=== PATIENT | male | born 1945 | race Caucasian/White ===

== ENCOUNTER 2017-04-25 14:41 | Outpatient (CLI) | payer MEDICARE ==
[2017-04-25] MEDS ORDERED: IOPAMIDOL-300 100 ML VIAL ONE (15:13)
[2017-04-25 15:27] LABS: CREATININE 0.7 mg/dL (0.6-1.2)
[2017-04-25] MEDS ORDERED: IOPAMIDOL-300 100 ML VIAL IVP ONE (15:46)
--- NOTE | 2017-04-26 10:10 | CT Report ---
CT BRAIN WITH AND WITHOUT CONTRAST: 04/25/2017 CLINICAL INDICATION: Left leg weakness. TECHNIQUE: Axial CT images of the brain were obtained prior to and following 80 mL Isovue-[address] No previous CT is available for comparison. In accordance with CT protocol optimization, one or more of the following dose reduction techniques w ere utilized for this exam: automated exposure control, adjustment of mA and/or KV based on patient size, or use of iterative reconstructive technique. FINDINGS: The ventricles and sulci are normal in size, shape, and configuration. The basilar cister ns are patent. There is no evidence of hemorrhage, mass effect, or midline shift. No abnormal enhan cement is seen following contrast administration. The visualized orbital contents and paranasal sinu ses are unremarkable. IMPRESSION: NORMAL CT OF THE BRAIN WITH AND WITHOUT CONTRAST. JOB #: [id number] EXT JOB #:[id number]
--- NOTE | 2017-04-26 16:50 | Ultrasound Report ---
CAROTID DUPLEX: 04/25/2017 CLINICAL INDICATION: Carotid bruit. TECHNIQUE: Real-time sonographic vascular imaging was performed by the automotive exhaust emissions technician through the carotid arteries utilizing both color-flow and Doppler spectral analysis. Multiple car sales representative static images were saved for review. Vessel PSV cm/sec 2D Plaque Estimate % EDV cm/sec ICA/CCA PSV % Stenosis RCCA Prox 124 -- RCCA Dist 114 32 -- RECA 119 -- RT BULB 94 -- 17 0.82 LYN Prox 92 -- 27 0.81 LYN Mid 96 -- 34 0.84 LYN Dist 96 -- 32 0.84 RVA 74 RVA flow direction: Antegrade. Vessel PSV cm/sec 2D Plaque Estimate % EDV cm/sec ICA/CCA PSV % Stenosis LCCA Prox 133 -- LCCA Dist 79 16 -- LECA 89 -- LFT BULB 76 -- 12 0.96 LICA Prox 66 -- 24 0.84 LICA Mid 110 -- 42 1.39 LICA Dist 103 -- 36 1.30 LVA 51 LVA flow direction: Antegrade. Velocity criteria are extrapolated from diameter data as defined by the Society of Radiologists in Ultrasound Consensus Conference Radiology 2003; 229; 340-346. Degree of Stenosis % ICA PSV cm/sec Plaque Estimate % ICA/CCA RSV Ratio ICA EDV cm/sec Normal < 125 None < 2.0 < 40 <50 < 125 < 50 < 2.0 < 40 50-69 125 - 130 >/= 50 2.0 - 4.0 40 - 100 >/= 70 but less than near occlusion > 230 >/= 50 > 4.0 > 100 Near occlusion High, low, or undetectable Visible lumen Variable Variable Total occlusion Undetectable No detectable lumen Not applicable Not applicable FINDINGS RIGHT: There is minimal atherosclerotic plaquing in the right carotid bifurcation, without evidence of a focal hemodynamically significant carotid stenosis. LEFT: There is minimal plaquing in the left carotid bifurcation, without evidence of a focal hemodynamically significant carotid stenosis. Vertebral arteries demonstrate antegrade flow bilaterally. IMPRESSION: MINIMAL PLAQUING BILATERALLY, WITHOUT EVIDENCE OF A FOCAL HEMODYNAMICALLY SIGNIFICANT CAROTID STENOSIS. MTDD
== END 2017-04-25 14:42 | disposition home or self-care (01) ==
LOC: DI 14:41
PROVIDERS: ATTEND Internal Medicine
DX: G83.10 Monoplegia of lower limb affecting unspecified side (principal); R09.89 Other specified symptoms and signs involving the circulatory and respiratory systems; R89.9 Unspecified abnormal finding in specimens from other organs, systems and tissues
CPT/HCPCS: 36415; 70470; 82565; 93880; Q9967

== ENCOUNTER 2018-07-10 07:54 | Day surgery (SDC) | payer MEDICARE ==
[2018-07-10] MEDS ORDERED: TRIAMCIN/MOXIFLOX OPHTHALMIC 0.6 ML VIAL IO ONE (08:18)
[2018-07-10] MEDS ORDERED: TIMOLOL 0.5% OPHTH DROPS ONE (08:19)
[2018-07-10] MEDS ORDERED: BSS/LIDOCAINE/EPINEPHRINE 1 ML SYRINGE ONE (08:19)
[2018-07-10] MEDS ORDERED: EPINEPHrine 1 MG/ML AMP ONE (08:19)
[2018-07-10] MEDS ORDERED: BRIMONIDINE 0.2% OPHTH DROPS 5 ML ONE (08:19)
[2018-07-10] MEDS ORDERED: VANCOMYCIN OPHTHALMI 8MG/0.8ML 8 MG/0.8 ML SYRINGE IO ONE (08:19)
[2018-07-10] MEDS ORDERED: PROPARACAINE 0.5% OPHTH DROPS 15 ML ONE (08:26)
[2018-07-10] MEDS ORDERED: KETOROLAC 0.45% OPHTH DROPS ONE (08:27)
[2018-07-10] MEDS ORDERED: CYCLOPENTOLATE 1% OPHTH DROPS 2 ML ONE (08:27)
[2018-07-10] MEDS ORDERED: PHENYLEPHRINE 2.5% OPHTH 2 ML DROPS ONE (08:28)
[2018-07-10] MEDS ORDERED: PHENYLEPHRINE 2.5% OPHTH 2 ML DROPS RIGHTEYE ONE (08:40)
[2018-07-10] MEDS ORDERED: KETOROLAC 0.45% OPHTH DROPS RIGHTEYE ONE (08:40)
[2018-07-10] MEDS ORDERED: CYCLOPENTOLATE 1% OPHTH DROPS 2 ML RIGHTEYE ONE (08:40)
[2018-07-10] MEDS ORDERED: PROPARACAINE 0.5% OPHTH DROPS 15 ML RIGHTEYE ONE ×2 (08:40→10:35)
[2018-07-10] MEDS ORDERED: LACTATED RINGERS 500 ML IV ONE (08:52)
--- NOTE | 2018-07-10 09:19 | ANESTHESIA ---
Pre-Anesthesia VS, & Labs - Diagnosis R senile combined cataract - Procedure R laser assisted extraction cataract with IOL Vital Signs: Temp Pulse Resp BP Pulse Ox 37.0 C 70 16 146/89 H 97 07/10/18 08:34 07/10/18 08:34 07/10/18 08:34 07/10/18 08:34 07/10/18 08:34 Height 6 ft 4 in Weight (kg) 95.4 kg - NPO >8 hours Home Medications and Allergies Home Medications: Ambulatory Orders No Known Home Medications 07/09/18 No Known Home Medications 07/09/18 Allergies/Adverse Reactions: Allergies Allergy/AdvReac Type Severity Reaction Status Date / Time No Known Drug Allergies Allergy Verified 07/09/18 14:35 Anes History & Medical History - Anesthetic History Anesthesia Complications: reports: No previous complications Family history of Anesthesia Complications: Denies Family history of Malignant Hyperthermia: Denies - Medical History Cardiovascular: reports: None Pulmonary: reports: None Gastrointestinal: reports: None Urinary: reports: None Musculoskeletal: reports: None Endocrine/Autoimmune: reports: None Skin: reports: None Exam General: Alert, Oriented x3, Cooperative Dental: WNL Mouth Openin Fingerbreadth Neck Mobility: Normal Mallampati classification: II Thyromental Distance: 4-6 cm Respiratory: Lungs clear, Normal breath sounds Cardiovascular: Regular rate Neurological: Normal speech Mental/Cognitive Status: Alert/Oriented X3, Normal for patient Plan Anesthesia Type: MAC Consent for Procedure(s) Verified and Reviewed: Yes Code Status: Attempt Resuscitation ASA classification: 1-Healthy patient Is this case an emergency?: No
[2018-07-10] MEDS ORDERED: MIDAZOLAM 2 MG/2 ML VIAL IVP ONE (10:00)
[2018-07-10] MEDS ORDERED: CHONDR SULF/HYALURONATE SYRINGE IO ONE (10:39)
[2018-07-10] MEDS ORDERED: TIMOLOL 0.5% OPHTH DROPS OPTH ONE (10:39)
[2018-07-10] MEDS ORDERED: EPINEPHrine 1 MG/ML AMP IVP ONE (10:39)
[2018-07-10] MEDS ORDERED: BRIMONIDINE 0.2% OPHTH DROPS 5 ML OPTH ONE (10:39)
[2018-07-10] MEDS ORDERED: BSS/LIDOCAINE/EPINEPHRINE 1 ML SYRINGE IO ONE ×2 (10:40)
[2018-07-10 11:21] VITALS: BP 142/73
--- NOTE | 2018-07-10 11:48 | OPERATIVE REPORT ---
DATE OF SERVICE: 07/10/2018 Physician: Zak Pablo MD PREOPERATIVE DIAGNOSIS: Visually significant cataract, right eye. This was his first cataract surgery. POSTOPERATIVE DIAGNOSIS: Visually significant cataract, right eye. PROCEDURE: Phacoemulsification with posterior chamber intraocular lens implant, right eye, with laser assist and toric IOL. SURGEON: Dr. Zak Pablo. ANESTHESIA: Monitored anesthesia care. COMPLICATIONS: None. OPERATIVE INDICATIONS: This is a 73-year-old man with progressive vision loss in the right eye due to 3-4+ nuclear sclerotic and large central vacular cataract. Best corrected visual acuity was 20/30 with glare to 20/100 in the right eye. Indications for surgery are overall decrease in vision, difficulty seeing words on a computer screen, difficulty reading, and difficulty seeing street signs. He was consented at length concerning risks and benefits of cataract surgery, after which he expressed a desire to proceed with surgery. OPERATIVE PROCEDURE: Patient was taken into OR #3 and placed under monitored anesthesia care. A surgical timeout was conducted confirming correct patient, correct procedure, and correct surgical site. He was placed on the LenSx laser and his eye docked to laser interface. Laser performed the capsulotomy, lens softening, phaco wound and arcuate keratotomy incisions. He was then moved to the operating microscope, given topical anesthesia, then prepped and draped in the usual sterile fashion. The eye was entered at the 12 and 9 o'clock positions. Intracameral Shugarcaine was injected into the anterior chamber, followed by Viscoat. The capsulorrhexis flap created by the LenSx laser was removed from the anterior chamber. The nucleus was hydrodissected and phacoemulsified. The cortex was evacuated using automated infusion and aspiration. Provisc was injected in the capsular bag, and a 19.5 diopter toric intraocular lens inserted in the bag. Approximately 0.8 mL of a mixture of triamcinolone, moxifloxacin, and vancomycin was injected subconjunctivally in the superior quadrant for infection and inflammation prophylaxis. I/A was used to evacuate the viscoelastic materials. The eye was inflated to physiologic pressure using a balanced salt solution and found to be watertight. The IOL, which was toric, was positioned at axis 074 and that was verified to be the case at the end of the surgery as well. Patient was taken from the operating room in good condition and given postop instructions. TD: 07/10/2018 11:20 SWATI
== END 2018-07-10 07:55 | disposition home or self-care (01) ==
LOC: SDS 07:54
PROVIDERS: ATTEND Ophthalmology
PROC: 08RJ3JZ Replacement of Right Lens with Synthetic Substitute, Percutaneous Approach (ICD-10-PCS; principal; 2018-07-10 10:15)
DX: H25.811 Combined forms of age-related cataract, right eye (principal); H53.15 Visual distortions of shape and size; N40.0 Benign prostatic hyperplasia without lower urinary tract symptoms; Z87.891 Personal history of nicotine dependence
CPT/HCPCS: 66984; A9270; J3490; V2632; V2787

== ENCOUNTER 2018-11-06 08:59 | Day surgery (SDC) | payer MEDICARE ==
[~2018-11-06 08:59] MED LIST: BRIMONIDINE 0.2% OPHTH DROPS 5 ML ONE; BSS/LIDOCAINE/EPINEPHRINE 1 ML SYRINGE ONE; EPINEPHrine 1 MG/ML AMP ONE; TIMOLOL 0.5% OPHTH DROPS ONE; TRIAMCIN/MOXIFLOX OPHTHALMIC 0.6 ML VIAL IO ONE; VANCOMYCIN OPHTHALMI 8MG/0.8ML 8 MG/0.8 ML SYRINGE IO ONE
[2018-11-06] MEDS ORDERED: PROPARACAINE 0.5% OPHTH DROPS 15 ML LEFTEYE ONE ×2 (09:30→10:35)
[2018-11-06] MEDS ORDERED: CYCLOPENTOLATE 1% OPHTH DROPS 2 ML LEFTEYE ONE (09:30)
[2018-11-06] MEDS ORDERED: PHENYLEPHRINE 2.5% OPHTH 2 ML DROPS LEFTEYE ONE (09:30)
[2018-11-06] MEDS ORDERED: KETOROLAC 0.45% OPHTH DROPS LEFTEYE ONE (09:30)
[2018-11-06] MEDS ORDERED: LACTATED RINGERS 500 ML IV ONE (09:37)
--- NOTE | 2018-11-06 09:44 | ANESTHESIA ---
Pre-Anesthesia VS, & Labs - Diagnosis left senile combined cataract - Procedure left laser assisted extraction cataract with lens implant Vital Signs: Temp Pulse Resp BP Pulse Ox 37.0 C 72 18 145/88 H 97 11/06/18 09:21 11/06/18 09:21 11/06/18 09:21 11/06/18 09:21 11/06/18 09:21 Height 6 ft 4 in Weight (kg) 93.5 kg - NPO >8 hours Home Medications and Allergies No Known Home Medications 07/09/18 Allergies/Adverse Reactions: Allergies Allergy/AdvReac Type Severity Reaction Status Date / Time No Known Drug Allergies Allergy Verified 07/09/18 14:35 Anes History & Medical History - Anesthetic History Anesthesia Complications: reports: No previous complications Family history of Anesthesia Complications: Denies Family history of Malignant Hyperthermia: Denies - Medical History Cardiovascular: reports: None Pulmonary: reports: None Gastrointestinal: reports: None Urinary: reports: None Musculoskeletal: reports: None Endocrine/Autoimmune: reports: None Skin: reports: None Exam General: Alert, Oriented x3, Cooperative, No acute distress Dental: Other (implant, cap) Mouth Openin Fingerbreadth Neck Mobility: Normal Mallampati classification: III Thyromental Distance: greater than 6 cm Respiratory: Lungs clear, Normal breath sounds, No respiratory distress, No accessory muscle use Cardiovascular: Regular rate, Normal S1, Normal S2, No murmurs Plan Anesthesia Type: MAC Consent for Procedure(s) Verified and Reviewed: Yes Code Status: Attempt Resuscitation ASA classification: 2-Mild systemic disease Is this case an emergency?: Yes
[2018-11-06] MEDS ORDERED: MIDAZOLAM 2 MG/2 ML VIAL IVP ONE (10:25)
[2018-11-06] MEDS ORDERED: EPINEPHrine 1 MG/ML AMP IVP ONE (10:34)
[2018-11-06] MEDS ORDERED: TIMOLOL 0.5% OPHTH DROPS OPTH ONE (10:34)
[2018-11-06] MEDS ORDERED: BRIMONIDINE 0.2% OPHTH DROPS 5 ML OPTH ONE (10:34)
[2018-11-06] MEDS ORDERED: CHONDR SULF/HYALURONATE SYRINGE IO ONE (10:34)
[2018-11-06] MEDS ORDERED: BSS/LIDOCAINE/EPINEPHRINE 1 ML SYRINGE IO ONE (10:35)
[2018-11-06] MEDS ORDERED: TRIAMCIN/MOXIFLOX OPHTHALMIC 0.6 ML VIAL IO ONE (10:35)
[2018-11-06] MEDS ORDERED: VANCOMYCIN OPHTHALMI 8MG/0.8ML 8 MG/0.8 ML SYRINGE IO ONE (10:36)
[2018-11-06 11:07] VITALS: BP 144/69
--- NOTE | 2018-11-06 11:18 | OPERATIVE REPORT ---
DATE OF SERVICE: 11/06/2018 Physician: Zak Pablo MD PREOPERATIVE DIAGNOSIS: Visually significant cataract, left eye. Cataract surgery was performed on the right eye with a toric lens on 07/10/2018. POSTOPERATIVE DIAGNOSIS: Visually significant cataract, left eye. Cataract surgery was performed on the right eye with a toric lens on 07/10/2018. PROCEDURE: Phacoemulsification with posterior chamber intraocular lens implant, left eye with laser assistance and using a toric lens. SURGEON: Zak Pablo MD ANESTHESIA: Monitored anesthesia care. COMPLICATIONS: None. OPERATIVE INDICATIONS: This is a 73-year-old man with progressive vision loss in the left eye due to 3-4+ nuclear sclerotic cataract. Best corrected visual acuity was 20/25 with glare to 20/40 in the left eye. Indications for surgery were overall decrease in vision, difficulty seeing words on the computer screen, difficulty reading, difficulty seeing words, closed captions or game scores on TV and difficulty driving at night because of headlights from other vehicles. He was consented at length concerning risks and benefits of cataract surgery, after which he expressed a desire to proceed with surgery. OPERATIVE PROCEDURE: Patient was taken to OR #3 and placed under monitored anesthesia care. A surgical timeout was conducted confirming the correct patient, correct procedure, and correct surgical site. He was placed under the LenSx laser and his eye docked to laser interface. The laser performed the capsulotomy, lens softening, phaco wounds and toric marker incisions in the cornea. He was then moved to the operating microscope, given topical anesthesia, and prepped and draped in the usual sterile fashion. The eye was entered at the 6 and 3 o'clock positions. Intracameral Shugarcaine was injected into the anterior chamber followed by Viscoat. The capsulorrhexis flap was created by the LenSx laser was removed from the anterior chamber. The nucleus was hydrodissected and phacoemulsified. The cortex was evacuated using automated infusion and aspiration (I&A). Provisc was injected into the capsular bag, and a 21.5 diopter toric intraocular lens was injected into the bag and rotated to axis 109 degrees for a goal refraction of -1.4 diopter for monovision result. Approximately 0.8 mL mixture of triamcinolone, moxifloxacin and vancomycin was injected subconjunctivally in the superior quadrant for infection and inflammation prophylaxis. I&A was used to evacuate the viscoelastic material. The eye was inflated to physiologic pressure using balanced salt solution and found to be watertight. The toric IOL cervantes were re-verified to be aligned with the corneal markers at axis 109. The patient was taken from the operating room in good condition unit and given postoperative instructions. TD: 11/06/2018 10:54 [facility]ITAL[facility]
== END 2018-11-06 09:00 | disposition home or self-care (01) ==
LOC: SDS 08:59
PROVIDERS: ATTEND Ophthalmology
PROC: 08RK3JZ Replacement of Left Lens with Synthetic Substitute, Percutaneous Approach (ICD-10-PCS; principal; 2018-11-06 10:00)
DX: H25.812 Combined forms of age-related cataract, left eye (principal); H52.202 Unspecified astigmatism, left eye
CPT/HCPCS: 66984; A9270; V2632

== ENCOUNTER 2019-04-21 10:41 | Outpatient (CLI) | payer MEDICARE ==
--- NOTE | 2019-04-22 08:43 | XRAY Report ---
Reason: DECREASED SENSATION RT FOOT, LEG WEAKNESS LT Procedure Date: 04/21/2019 Accession Number: [id number] / [id number] Procedure: XRN - Lumbar Spine 2 View CPT Code: Final Report FULL RESULT: EXAM: LUMBOSACRAL SPINE RADIOGRAPHY EXAM DATE: 04/21/2019 11:01 AM. CLINICAL HISTORY: Decreased sensation right foot, left leg weakness. COMPARISONS: None. TECHNIQUE: 3 views. FINDINGS: Alignment: There is mild to moderate rightward upper lumbar scoliosis. There is grade 1 anterolisthesis of L4 on L5, and grade 1 retrolisthesis of L5 on S1. Bones: Five gze-kjs-qxeyzkj lumbar vertebral bodies are present. No vertebral body height collapse identified. Disks: Mild to moderate disk space narrowing of the lower lumbar spine. Facets: Mild to moderate hypertrophic changes of the facet articulations bilaterally L4-L5 and L5-S1. Sacroiliac Joints: Within normal limits. Soft Tissues: The visualized bowel gas pattern is normal. IMPRESSION: Spondylolisthesis of the lower lumbar spine. No vertebral body height collapse identified. Mild to moderate rightward lumbar scoliosis. RADIA
== END 2019-04-21 10:42 | disposition home or self-care (01) ==
LOC: DI.N 10:41
PROVIDERS: ATTEND Family Medicine
DX: M51.36 Other intervertebral disc degeneration, lumbar region (principal); M47.816 Spondylosis without myelopathy or radiculopathy, lumbar region; M47.817 Spondylosis without myelopathy or radiculopathy, lumbosacral region; M43.16 Spondylolisthesis, lumbar region; M43.17 Spondylolisthesis, lumbosacral region; M41.9 Scoliosis, unspecified
CPT/HCPCS: 72100

== ENCOUNTER 2019-06-18 10:14 | Day surgery (SDC) | payer MEDICARE ==
[2019-06-18] MEDS ORDERED: MIDAZOLAM 2 MG/2 ML VIAL IVP ONE (10:15)
[2019-06-18] MEDS ORDERED: fentaNYL 250 MCG/5 ML VIAL IVP ONE (10:15)
[2019-06-18] MEDS ORDERED: LACTATED RINGERS 1,000 ML IV ONE (10:20)
[2019-06-18 13:51] VITALS: BP 137/78
== END 2019-06-18 10:15 | disposition home or self-care (01) ==
LOC: SDS 10:14
PROVIDERS: ATTEND Surgery
PROC: 0DBL8ZZ Excision of Transverse Colon, Via Natural or Artificial Opening Endoscopic (ICD-10-PCS; 2019-06-18)
PROC: 0DBN8ZZ Excision of Sigmoid Colon, Via Natural or Artificial Opening Endoscopic (ICD-10-PCS; principal; 2019-06-18 11:45)
DX: Z12.11 Encounter for screening for malignant neoplasm of colon (principal); K63.89 Other specified diseases of intestine; K64.8 Other hemorrhoids; K64.4 Residual hemorrhoidal skin tags; Z87.891 Personal history of nicotine dependence
CPT/HCPCS: 45380; J3010; J7120

== ENCOUNTER 2020-06-02 08:00 | Outpatient (CLI) | payer MEDICARE | END 2020-06-02 23:59 | disposition home or self-care (01) | LOC: LAB.R 08:00 | PROVIDERS: ATTEND Family Medicine | DX: N41.9 Inflammatory disease of prostate, unspecified (principal); B96.89 Other specified bacterial agents as the cause of diseases classified elsewhere | CPT/HCPCS: 87086 ==

== ENCOUNTER 2020-06-02 17:12 | Outpatient (CLI) | payer MEDICARE ==
[2020-06-02 20:47] LABS: BASOPHILS % (AUTO) 0.4 %; EOSINOPHILS # (AUTO) 0.1 10^3/uL (0.0-0.7); HGB - HEMOGLOBIN 15.2 g/dL (14.0-18.0); LYMPHOCYTES # (AUTO) 1.8 10^3/uL (1.5-3.5); LYMPHOCYTES % (AUTO) 25.5 %; MEAN CORPUSCULAR HEMOGLOBIN 31.1 pg (27.0-31.0); MEAN CORPUSCULAR HGB CONC 33.5 g/dL (32.0-36.0); MEAN PLATELET VOLUME 11.3 fL (7.4-11.4); MONOCYTES # (AUTO) 0.7 10^3/uL (0.0-1.0); MONOCYTES % (AUTO) 9.5 %; NEUTROPHILS # (AUTO) 4.4 10^3/uL (1.5-6.6); NEUTROPHILS % (AUTO) 63.5 %; PLT - PLATELET COUNT 223 10^3/uL (130-450); RED BLOOD COUNT 4.88 10^6/uL (4.70-6.10); RED CELL DISTRIBUTION WIDTH 12.9 % (12.0-15.0); WHITE BLOOD COUNT 6.9 x10^3/uL (4.8-10.8)
[2020-06-02 20:59] LABS: ALBUMIN 4.3 g/dL (3.2-5.5); ALBUMIN/GLOBULIN RATIO 1.6 (1.0-2.2); BILIRUBIN,TOTAL 0.5 mg/dL (0.2-1.0); CALCIUM 9.2 mg/dL (8.5-10.3); CREATININE 0.8 mg/dL (0.6-1.2)
== END 2020-06-02 17:13 | disposition home or self-care (01) ==
LOC: LAB.N 17:12
PROVIDERS: ATTEND Family Medicine
DX: G12.20 Motor neuron disease, unspecified (principal); N40.0 Benign prostatic hyperplasia without lower urinary tract symptoms; N52.9 Male erectile dysfunction, unspecified; R97.20 Elevated prostate specific antigen [PSA]
CPT/HCPCS: 36415; 80053; 84443; 85025; G0103; 84153

== ENCOUNTER 2020-06-15 18:25 | Outpatient (CLI) | payer MEDICARE ==
[2020-06-15] MEDS ORDERED: IOVERSOL 320 100 ML VIAL IVP ONE ×2 (18:59→19:38)
--- NOTE | 2020-06-16 10:02 | CT Report ---
PROCEDURE: IVP INDICATIONS: GROSS HEMATURIA, BPH, ELEVATED PROSTATE SPECIFIC ANTIGEN [PSA] CONTRAST: IV CONTRAST: Optiray 320 ml: 140 PO CONTRAST: *NO PO CONTRAST TECHNIQUE: After the administration of intravenous contrast, 5 mm thick sections acquired from the diaphragms to the symphysis. 5 mm thick coronal and sagittal reformats were acquired. For radiation dose reducti on, the following was used: automated exposure control, adjustment of mA and/or kV according to maykel ent size. COMPARISON: None. FINDINGS: Image quality: Excellent. Lung bases: Lung bases are clear. Heart size is normal. Urinary system: Both kidneys are normal in size and symmetric in uptake and excretion of IV contrast . There are several small parapelvic cysts within the left kidney. There is a tiny exophytic cyst kathie sing from the upper pole of the left kidney. Contrast-filled renal calyces are normal in morphology. Contrast filled portions of both ureters are normal in caliber. Bladder wall thickness is normal. The prostate gland is enlarged measuring about 7.1 x 6.1 x 8.4 cm for a volume of about 189 cc. Solid organs: There are several small cysts scattered throughout the liver. The spleen appears normal . Gallbladder is unremarkable. Biliary system is non dilated. Pancreas enhances normally. No adren al nodules. Peritoneum and bowel: Bowel loops demonstrate normal wall thickness and caliber. No free fluid or a ir. Nodes and vessels: No retroperitoneal or mesenteric adenopathy by size criteria. Aorta and inferior vena cava are normal in size. Abdominal wall: No ventral hernias. Pelvis: No pathologic free pelvic fluid. There is an indirect left inguinal hernia containing a loop of proximal sigmoid colon. Increased quantity of solid stool is present throughout the colon and rec hali. No pelvic adenopathy. Bones: No suspicious bony lesions. Moderate degenerative changes in both hip joints. No vertebral b oralia compression fractures. IMPRESSION: 1. Markedly enlarged prostate gland. If clinically 2. No urinary calcifications or suspicious findings in the urinary collecting system. 3. Nonobstructive, sigmoid colon containing left inguinal hernia. Reviewed by: Nathalie Moses MD on 06/16/2020 10:00 AM [facility] Approved by: Nathalie Moses MD on 06/16/2020 10:00 AM PST Station ID: [id number]
== END 2020-06-15 18:26 | disposition home or self-care (01) ==
LOC: DI 18:25
PROVIDERS: ATTEND Urology
DX: N40.0 Benign prostatic hyperplasia without lower urinary tract symptoms (principal); K40.90 Unilateral inguinal hernia, without obstruction or gangrene, not specified as recurrent
CPT/HCPCS: 74178; Q9967

== ENCOUNTER 2021-03-24 03:11 | Emergency (ER) | payer MEDICARE ==
--- NOTE | 2021-03-24 03:31 | ED Physician Documentation ---
PD HPI URI - Stated complaint Stated Complaint: FEVER, COUGH - Chief complaint Chief Complaint: Resp - History obtained from History obtained from: Patient - History of Present Illness Timing - onset: How many weeks ago (1) Timing duration: Weeks (1) Timing details: Gradual onset, Still present Associated symptoms: Fever (just the past day) Contributing factors: Unimmunized. No: Sick contact (his is starting to have some congestion and cough the past couple of days.), Immunocompromised, COPD / asthma Similar symptoms before: Has not had sx before Recently seen: Not recently seen Review of Systems Constitutional: reports: Fever, Chills, Myalgias Nose: reports: Congestion Throat: denies: Sore throat Cardiac: denies: Chest pain / pressure Respiratory: reports: Dyspnea, Cough. denies: Wheezing GI: reports: Nausea. denies: Abdominal Pain, Vomiting, Diarrhea Skin: denies: Rash, Lesions Neurologic: denies: Altered mental status, Headache Psychiatric: reports: Insomnia (just the past 5-6 days due to coughing.) PD PAST MEDICAL HISTORY - Past Medical History Cardiovascular: None Respiratory: None Endocrine/Autoimmune: None GI: None : None HEENT: None Psych: None Musculoskeletal: Chronic back pain Derm: None - Past Surgical History HEENT: Cataracts - Present Medications Home Medications: Ambulatory Orders Medication Instructions Recorded Confirmed Albuterol Sulf [Ventolin Hfa 2 - 3 puffs INH Q4HR PRN #1 inhaler 03/24/21 Inhaler] Amoxicillin 500 mg PO TID #15 cap 03/24/21 Benzonatate [Tessalon] 100 mg PO TID PRN #25 cap 03/24/21 HYDROcod/ACETAM 5/325 [[place] 5/325] 1 ea PO Q6H PRN #12 tablet 03/24/21 dexAMETHasone [Decadron] 4 mg PO DAILY #5 tablet 03/24/21 - Allergies Allergies/Adverse Reactions: Allergies Allergy/AdvReac Type Severity Reaction Status Date / Time No Known Drug Allergies Allergy Verified 03/24/21 03:35 PD ED PE NORMAL - Vitals Vital signs reviewed: Yes (high fever. Normal BP. ) - General General: Alert and oriented X 3, No acute distress, Well developed/nourished - HEENT HEENT: Ears normal, Pharynx benign - Neck Neck: Supple, no meningeal sign, No adenopathy - Cardiac Cardiac: RRR, No murmur - Respiratory Respiratory: No: Clear bilaterally (no wheezing per se. Some mild fine crackles diffusely. ) - Abdomen Abdomen: Soft, Non tender - Derm Derm: Normal color, Warm and dry - Extremities Extremities: No edema, No calf tenderness / cord - Neuro Neuro: Alert and oriented X 3, No motor deficit, Normal speech Results - Vitals Vitals: Oxygen O2 Source Room air - Labs Labs: Laboratory Tests 03/24/21 03/24/21 03/24/21 03:33 04:30 05:15 WBC 6.2 RBC 4.77 Hgb 15.0 Hct 44.0 MCV 92.2 MCH 31.4 H MCHC 34.1 RDW 12.7 Plt Count 120 L MPV 11.5 H Neut # (Auto) 4.9 Lymph # (Auto) 0.9 L [place] # (Auto) 0.4 Eos # (Auto) 0.0 Baso # (Auto) 0.0 Absolute Nucleated RBC 0.00 Nucleated RBC % 0.0 Sodium 135 Potassium 4.1 Chloride 102 Carbon Dioxide 24 Anion Gap 9.0 BUN 18 Creatinine 0.8 Estimated GFR (MDRD) 94 Glucose 130 H Calcium 7.6 L Total Bilirubin 1.5 H AST 59 H ALT 44 Alkaline Phosphatase 35 L Total Protein 6.2 L Albumin 3.1 L Globulin 3.1 Albumin/Globulin Ratio 1.0 Lipase 29 Nasal Adenovirus (PCR) NOT DETECTED Nasal B. parapertussis DNA (PCR) NOT DETECTED Nasal Coronavir 229E PCR NOT DETECTED Nasal Coronavir HKU1 PCR NOT DETECTED Nasal Coronavir NL63 PCR NOT DETECTED Nasal Coronavir OC43 PCR NOT DETECTED Nasal Enterovir/Rhinovir PCR NOT DETECTED Nasal Influenza B PCR NOT DETECTED Nasal Influenza A PCR NOT DETECTED Nasal Parainfluen 1 PCR NOT DETECTED Nasal Parainfluen 2 PCR NOT DETECTED Nasal Parainfluen 3 PCR NOT DETECTED Nasal Parainfluen 4 PCR NOT DETECTED Nasal RSV (PCR) NOT DETECTED Nasal B.pertussis DNA PCR NOT DETECTED Nasal C.pneumoniae (PCR) NOT DETECTED Vamsi Human Metapneumo PCR NOT DETECTED Nasal M.pneumoniae (PCR) NOT DETECTED Nasal SARS-CoV-2 (PCR) DETECTED A - Rads (name of study) chest xray Radiology: Prelim report reviewed (patchy bilateral infiltrates c/w pneumonia. ), See rad report PD MEDICAL DECISION MAKING - ED course Complexity details: reviewed results, re-evaluated patient (feeling less cough and dyspnea after meds and MDI here. ), considered differential, d/w patient ED course: Mab therapy for this patient with Covid was considered and discussed with the patient. The patient was provided the handout: ``Casirivimab plus Imdevimab Fact Sheet for Patients, Parents and Caregivers, and the information within was discussed with the patient. The patient was informed of alternatives prior to receiving Mab therapy. The patient was informed that these medications are unapproved drugs that are authorized for use under Emergency Use Authorization by the FDA. The patient will be monitored for at least 1 hour after infusion is complete. Departure - Departure Disposition: Home, Self Care Clinical Impression: Acute lower respiratory infection, Pneumonia due to COVID-19 virus Dyspnea Qualifiers: Dyspnea type: shortness of breath Qualified Code(s): R06.02 - Shortness of breath Condition: Stable Record reviewed to determine appropriate education?: Yes Instructions: ED Pneumonia Adult Follow-Up: Mohamud Espino MD [Primary Care Provider] - Prescriptions: Albuterol Sulf [Ventolin Hfa Inhaler] 2 - 3 puffs INH Q4HR PRN #1 inhaler PRN Reason: Shortness Of Air/Wheezing Amoxicillin 500 mg PO TID #15 cap dexAMETHasone [Decadron] 4 mg PO DAILY #5 tablet HYDROcod/ACETAM 5/325 [[place] 5/325] 1 ea PO Q6H PRN #12 tablet PRN Reason: Pain Benzonatate [Tessalon] 100 mg PO TID PRN #25 cap PRN Reason: Cough Comments: Your respiratory panel test was positive for Covid. It is negative for other viruses. Your chest x-ray shows some infiltrates consistent with patchy pneumonia. This can be certainly from Covid infection. Given the progression of symptoms acutely though, you could wonder if there is a secondary bacterial component as well. Use the albuterol inhaler 2 to 3 puffs 4 times a day for the next several days to week. Benzonatate if needed for cough and Decadron for inflammation of the airways to help with your breathing and decrease cough as well. To that you can add hydrocodone if needed for cough suppression to (at the request of your ). Amoxicillin 3 times a day for 5 days for potential bacterial component. Stay well-hydrated and use Tylenol every 4 hours for the next couple of days to help with fever suppression. Return if significantly worse for reevaluation. Currently your oxygenation is reasonable though a little low at 93 to 95%. You did receive the monoclonal antibodies here in the hospital which we will try to support an complement your immune system to help fight off the infection to not be as severe. I transmitted your prescriptions to [facility] in [place]. I am prescribing a short course of narcotic pain medication for you. These are potentially dangerous and addictive medications that should be used carefully. These medications may constipate you. Take an zxnu-sdy-faijbme stool softener such as docusate twice daily with plenty of water while taking these medications. If you go 24 hours without a bowel movement, take sgmp-jff-qazcdta MiraLAX, per package instructions. Do not drink or drive while taking these medications. If you received narcotic or sedating medications while in the emergency department do not drive for 24 hours. Store this medication in a safe, secure place and out of reach of children. It is a violation of federal law to give or sell this medication to another person or to use in a manner other than prescribed. The ED will not refill narcotic prescriptions, including prescriptions lost or stolen. You can dispose of unwanted medications at the [facility] office or at several pharmacies such as [facility]. Discharge Date/Time: 03/24/21 09:36
[2021-03-24] MEDS ORDERED: SODIUM CHLORIDE 0.9% 1,000 ML IV STA (03:57)
[2021-03-24] MEDS ORDERED: KETOROLAC 15 MG/ML VIAL IVP STA (03:58)
[2021-03-24] MEDS ORDERED: BENZONATATE 100 MG CAPSULE PO STA (03:58)
[2021-03-24] MEDS ORDERED: ALBUTEROL 1 PUFF INH STA (03:58)
[2021-03-24] MEDS ORDERED: ACETAMINOPHEN 500 MG TABLET PO STA (03:58)
[2021-03-24] MEDS ORDERED: DEXAMETHASONE 10 MG/ML VIAL IVP STA (03:58)
[2021-03-24 04:42] LABS: CORONAVIRUS 229E-RESP PCR NOT DETECTED; CORONAVIRUS HKU1-RESP PCR NOT DETECTED; CORONAVIRUS NL63-RESP PCR NOT DETECTED; CORONAVIRUS OC43-RESP PCR NOT DETECTED
[2021-03-24 04:46] LABS: B. PARAPERTUSSIS- RESP PCR PAN NOT DETECTED; B. PERTUSSIS- RESP PCR PANEL NOT DETECTED; C. PNEUMONIAE- RESP PCR PANEL NOT DETECTED; HUMAN METAPNEUMOVIRUS NOT DETECTED; INFLUENZA A- RESP PCR PANEL NOT DETECTED; INFLUENZA B - RESP PCR PANEL NOT DETECTED; M. PNEUMONIAE- RESP PCR PANEL NOT DETECTED; PARAINFLUENZA VIRUS 1 NOT DETECTED; PARAINFLUENZA VIRUS 2 NOT DETECTED; PARAINFLUENZA VIRUS 3 NOT DETECTED; PARAINFLUENZA VIRUS 4 NOT DETECTED; RHINOVIRUS/ENTEROVIRUS NOT DETECTED; RSV- RESP PCR PANEL NOT DETECTED; SARS-CoV-2 -RESP PCR PANEL DETECTED
[2021-03-24 05:07] LABS: BASOPHILS % (AUTO) 0.2 %; LYMPHOCYTES # (AUTO) 0.9 10^3/uL (1.5-3.5); MEAN CORPUSCULAR HEMOGLOBIN 31.4 pg (27.0-31.0); MEAN CORPUSCULAR HGB CONC 34.1 g/dL (32.0-36.0); MEAN CORPUSCULAR VOLUME 92.2 fL (80.0-94.0); MEAN PLATELET VOLUME 11.5 fL (7.4-11.4); MONOCYTES # (AUTO) 0.4 10^3/uL (0.0-1.0); MONOCYTES % (AUTO) 6.3 %; NEUTROPHILS # (AUTO) 4.9 10^3/uL (1.5-6.6); NEUTROPHILS % (AUTO) 78.2 %; PLT - PLATELET COUNT 120 10^3/uL (130-450); RED BLOOD COUNT 4.77 10^6/uL (4.70-6.10); RED CELL DISTRIBUTION WIDTH 12.7 % (12.0-15.0); WHITE BLOOD COUNT 6.2 x10^3/uL (4.8-10.8)
[2021-03-24] MEDS ORDERED: AMOXICILLIN 250 MG CAPSULE PO STA (05:25)
[2021-03-24 05:39] LABS: ALBUMIN 3.1 g/dL (3.2-5.5); BILIRUBIN,TOTAL 1.5 mg/dL (0.2-1.0); CALCIUM 7.6 mg/dL (8.5-10.3); CREATININE 0.8 mg/dL (0.6-1.2); POTASSIUM 4.1 mmol/L (3.5-5.0); TOTAL PROTEIN 6.2 g/dL (6.7-8.2)
[2021-03-24] MEDS ORDERED: CASIRIVIMAB/IMDEVIMAB 10 ML in SODIUM CHLORIDE 0.9% 50 ML IV ONE (08:15)
[2021-03-24 09:19] VITALS: BP 118/66
--- NOTE | 2021-03-24 09:54 | XRAY Report ---
PROCEDURE: Chest 1 View X-Ray INDICATIONS: chest pain TECHNIQUE: One view of the chest was acquired. COMPARISON: None FINDINGS: Surgical changes and devices: None. Lungs and pleura: No pleural effusions or pneumothorax. Patchy areas of hazy airspace opacity are pr esent predominantly in the peripheral portion of the lungs. Mediastinum: Mediastinal contours appear normal. Heart size is normal. Bones and chest wall: No suspicious bony lesions. Overlying soft tissues appear unremarkable. IMPRESSION: Hazy bilateral pulmonary opacities which may represent atelectasis. However, developing pneumonia shonda uld be considered. The above findings are concordant with preliminary report. Reviewed by: Regina Dickson MD on 03/24/2021 9:53 AM PDT Approved by: Regina Dickson MD on 03/24/2021 9:53 AM PDT Station ID: [id number]
== END 2021-03-24 09:36 | disposition home or self-care (01) ==
LOC: ED 03:11 → FBP 03:17 → ED 03:17
DX: U07.1 COVID-19 (principal); J12.82 Pneumonia due to coronavirus disease 2019
CPT/HCPCS: 36415; 71045; 80053; 83690; 85025; 87631; 94640; 94664; 96374; 96375; 99284; A9270; M0243; Q0244; 0202U

== ENCOUNTER 2021-07-01 09:30 | Outpatient (CLI) | payer MEDICARE ==
[2021-07-01 14:01] LABS: BASOPHILS % (AUTO) 0.8 %; EOSINOPHILS # (AUTO) 0.2 10^3/uL (0.0-0.7); EOSINOPHILS % (AUTO) 3.3 %; HCT - HEMATOCRIT 45.4 % (42.0-52.0); HGB - HEMOGLOBIN 14.9 g/dL (14.0-18.0); LYMPHOCYTES # (AUTO) 1.5 10^3/uL (1.5-3.5); LYMPHOCYTES % (AUTO) 28.8 %; MEAN CORPUSCULAR HEMOGLOBIN 31.4 pg (27.0-31.0); MEAN CORPUSCULAR HGB CONC 32.8 g/dL (32.0-36.0); MEAN CORPUSCULAR VOLUME 95.8 fL (80.0-94.0); MEAN PLATELET VOLUME 11.6 fL (7.4-11.4); MONOCYTES # (AUTO) 0.5 10^3/uL (0.0-1.0); MONOCYTES % (AUTO) 9.7 %; NEUTROPHILS # (AUTO) 2.9 10^3/uL (1.5-6.6); NEUTROPHILS % (AUTO) 57.2 %; PLT - PLATELET COUNT 214 10^3/uL (130-450); RED BLOOD COUNT 4.74 10^6/uL (4.70-6.10); RED CELL DISTRIBUTION WIDTH 13.1 % (12.0-15.0); WHITE BLOOD COUNT 5.1 x10^3/uL (4.8-10.8)
[2021-07-01 14:23] LABS: ALBUMIN 4.2 g/dL (3.2-5.5); ALBUMIN/GLOBULIN RATIO 1.6 (1.0-2.2); ALKALINE PHOSPHATASE 57 IU/L (42-121); ALT ALANINE AMINOTRANSFERASE 30 IU/L (10-60); AST ASPARTATE AMINOTRANSFERASE 24 IU/L (10-42); BILIRUBIN,TOTAL 0.9 mg/dL (0.2-1.0); BUN - BLOOD UREA NITROGEN 18 mg/dL (6-20); CALCIUM 9.4 mg/dL (8.5-10.3); CARBON DIOXIDE - CO2 31 mmol/L (21-32); CHLORIDE 103 mmol/L (101-111); CHOL/HDL RATIO 4.3 (<5.0); CHOLESTEROL 196 mg/dL; CREATININE 0.8 mg/dL (0.6-1.2); GFR - MDRD 94 (>89); GLUCOSE 102 mg/dL (70-100); HDL CHOLESTEROL 46 mg/dL; LDL CHOLESTEROL,CALCULATED 122 mg/dL; LDL/HDL RATIO 2.7 (<3.6); POTASSIUM 4.9 mmol/L (3.5-5.0); SODIUM 142 mmol/L (135-145); TOTAL PROTEIN 6.8 g/dL (6.7-8.2); TRIGLYCERIDES 140 mg/dL; VLDL CHOLESTEROL 28 mg/dL
[2021-07-01 14:26] LABS: PSA FREE 1.37 ng/mL (0.16-2.81)
[2021-07-01 14:27] LABS: PSA TOTAL 5.72 ng/mL (0.000-2.000)
[2021-07-01 14:52] LABS: THYROID STIMULATING HORMONE 1.25 uIU/mL (0.34-5.60)
== END 2021-07-01 09:31 | disposition home or self-care (01) ==
LOC: LAB.N 09:30
PROVIDERS: ATTEND Family Medicine
DX: Z00.00 Encounter for general adult medical examination without abnormal findings (principal); E78.5 Hyperlipidemia, unspecified; Z12.5 Encounter for screening for malignant neoplasm of prostate; Z13.29 Encounter for screening for other suspected endocrine disorder
CPT/HCPCS: 36415; 80053; 80061; 83721; 84153; 84154; 84443; 85025

== ENCOUNTER 2022-07-18 08:12 | Outpatient (CLI) | payer MEDICARE ==
[2022-07-18 12:18] LABS: BASOPHILS % (AUTO) 0.6 %; EOSINOPHILS # (AUTO) 0.1 10^3/uL (0.0-0.7); EOSINOPHILS % (AUTO) 2.6 %; HCT - HEMATOCRIT 48.3 % (42.0-52.0); HGB - HEMOGLOBIN 15.4 g/dL (14.0-18.0); LYMPHOCYTES # (AUTO) 1.7 10^3/uL (1.5-3.5); LYMPHOCYTES % (AUTO) 32.9 %; MEAN CORPUSCULAR HEMOGLOBIN 30.6 pg (27.0-31.0); MEAN CORPUSCULAR HGB CONC 31.9 g/dL (32.0-36.0); MEAN PLATELET VOLUME 11.3 fL (7.4-11.4); MONOCYTES # (AUTO) 0.4 10^3/uL (0.0-1.0); MONOCYTES % (AUTO) 7.8 %; NEUTROPHILS # (AUTO) 2.8 10^3/uL (1.5-6.6); NEUTROPHILS % (AUTO) 55.9 %; PLT - PLATELET COUNT 208 10^3/uL (130-450); RED BLOOD COUNT 5.03 10^6/uL (4.70-6.10)
[2022-07-18 12:43] LABS: ALBUMIN 4.4 g/dL (3.2-5.5); ALBUMIN/GLOBULIN RATIO 1.5 (1.0-2.2); ALKALINE PHOSPHATASE 56 IU/L (42-121); ALT ALANINE AMINOTRANSFERASE 20 IU/L (10-60); AST ASPARTATE AMINOTRANSFERASE 20 IU/L (10-42); BUN - BLOOD UREA NITROGEN 16 mg/dL (6-20); CALCIUM 9.4 mg/dL (8.5-10.3); CARBON DIOXIDE - CO2 32 mmol/L (21-32); CHLORIDE 103 mmol/L (101-111); CHOL/HDL RATIO 4.2 (<5.0); CHOLESTEROL 197 mg/dL; CREATININE 0.8 mg/dL (0.6-1.2); GFR - MDRD 94 (>89); GLUCOSE 105 mg/dL (70-100); HDL CHOLESTEROL 47 mg/dL; LDL CHOLESTEROL,CALCULATED 135 mg/dL; LDL/HDL RATIO 2.9 (<3.6); POTASSIUM 4.3 mmol/L (3.5-5.0); SODIUM 139 mmol/L (135-145); TOTAL PROTEIN 7.3 g/dL (6.7-8.2); TRIGLYCERIDES 74 mg/dL; VLDL CHOLESTEROL 15 mg/dL
[2022-07-18 12:50] LABS: THYROID STIMULATING HORMONE 1.59 uIU/mL (0.34-5.60)
== END 2022-07-18 08:13 | disposition home or self-care (01) ==
LOC: LAB.N 08:12
PROVIDERS: ATTEND Family Medicine
DX: M43.16 Spondylolisthesis, lumbar region (principal); M54.16 Radiculopathy, lumbar region; Z12.5 Encounter for screening for malignant neoplasm of prostate
CPT/HCPCS: 36415; 80053; 80061; 84443; 85025; G0103; 83721; 84153

== ENCOUNTER 2023-10-16 11:20 | Outpatient (CLI) | payer MEDICARE | END 2023-10-16 11:21 | disposition home or self-care (01) | LOC: LAB.N 11:20 | PROVIDERS: ATTEND Urology | DX: R97.20 Elevated prostate specific antigen [PSA] (principal) | CPT/HCPCS: 36415; 84153 ==

== ENCOUNTER 2023-11-11 08:30 | Outpatient (CLI) | payer MEDICARE ==
[2023-11-11 08:56] LABS: CREATININE 0.8 mg/dL (0.6-1.3)
--- NOTE | 2023-11-11 13:00 | MRI Report ---
PROCEDURE: Pelvis W/WO INDICATIONS: INCREASED PSA CONTRAST: Clariscan 18.8ml TECHNIQUE: Coronal ultra fast SE, axial T1 FSE with fat saturation, 3-plane nonbreath-hold T2 FSE. After the ad ministration of contrast, dynamic axial, delayed axial and coronal ultra fast GE or 2-D spoiled GE wi th fat saturation through the pelvis. Optional diffusion weighted imaging and ADC may be performed. COMPARISON: 06/15/2020 CT IVP FINDINGS: Image quality: Diffusion weighted and dynamic contrast enhanced images are diagnostic. Prostate: Gland size is 7.2 x 5.4 x 7 cm; ellipsoid gland volume is 142 mL. PSA Density: 0.07 Transitional zone heterogenous nodules are present, either well encapsulated or mostly encapsulated, compatible with PI-RADS 1 or 2 likely BPH nodules. This is the predominant finding. Some of these nodules impinge upon the bladder neck. 1.3 x 0.9 x 0.9 cm finding in the left posterior medial peripheral zone mid gland. DWI score is 3. T2 score is 3. DCE positive. Pi RADS 4 Genitourinary system: Mildly thick-walled urinary bladder, usually from chronic obstruction, but no t well evaluated on imaging. Bowel and peritoneum: No pathologic ascites. No small bowel obstruction in the lower abdomen Nodes and vessels: No aneurysmal vessel. Borderline enlarged lymph node is seen adjacent to the right side of the bladder (20/34), measuring 1 cm in short axis. Soft tissues: Small left fat-containing inguinal hernia. Bones: Degenerative changes. IMPRESSION: PI RADS 4 lesion in the left mid gland posterior medial peripheral zone. 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 Some of the BPH nodules cause mass effect of the bladder neck. Indeterminate, are borderline enlarged pelvic lymph nodes, most significant finding adjacent to the r ight side of the bladder. If targeted biopsies are positive, consider prostate PET/CT. Other findings above. Reviewed by: Victor Manuel Rehman MD on 11/11/2023 12:59 PM PDT Approved by: Victor Manuel Rehman MD on 11/11/2023 12:59 PM PDT Station ID: [id number]
[2023-11-11] MEDS: GADOTERATE MEGLUMINE 10 MMOL/20 ML VIAL IVP ONE (17:58)
== END 2023-11-11 08:31 | disposition home or self-care (01) ==
LOC: LAB 08:30
PROVIDERS: ATTEND Urology
DX: R97.20 Elevated prostate specific antigen [PSA] (principal); N40.2 Nodular prostate without lower urinary tract symptoms
CPT/HCPCS: 36415; 72197; 82565; A9575

== ENCOUNTER 2023-12-09 11:07 | Day surgery (SDC) | payer MEDICARE ==
[~2023-12-09 11:07] MED LIST changes: -BRIMONIDINE 0.2% OPHTH DROPS 5 ML ONE; -BSS/LIDOCAINE/EPINEPHRINE 1 ML SYRINGE ONE; -EPINEPHrine 1 MG/ML AMP ONE; +PROPOFOL 500 MG/50 ML 500 MG/50 ML VIAL ONE; -TIMOLOL 0.5% OPHTH DROPS ONE; -TRIAMCIN/MOXIFLOX OPHTHALMIC 0.6 ML VIAL IO ONE; -VANCOMYCIN OPHTHALMI 8MG/0.8ML 8 MG/0.8 ML SYRINGE IO ONE
[2023-12-09] MEDS: LACTATED RINGERS 1,000 ML IV ONE ×2 (11:11→12:35)
--- NOTE | 2023-12-09 11:36 | ANESTHESIA ---
Pre-Anesthesia VS, & Labs - Diagnosis elevated psa - Procedure TRUS prostate biopsy Height: 6 ft 4 in Weight (kg): 90.4 kg Body Mass Index: 24.3 BMI Classification: Normal Home Medications and Allergies Home Medications: Ambulatory Orders Ciprofloxacin HCl 500 mg PO ONCE 12/09/23 Ciprofloxacin HCl 500 mg PO ONCE 12/09/23 Allergies/Adverse Reactions: Allergies Allergy/AdvReac Type Severity Reaction Status Date / Time No Known Drug Allergies Allergy Verified 12/09/23 11:32 Anes History & Medical History - Medical History Cardiovascular: reports: None Pulmonary: reports: None Gastrointestinal: reports: None Urinary: reports: None Musculoskeletal: reports: Chronic back pain Endocrine/Autoimmune: reports: None Skin: reports: None Smoking Status: Never smoker - Surgical History Eyes Ears Nose Throat (EENT): reports: Cataracts Exam General: Alert, Oriented x3, Cooperative Dental: WNL Mouth Opening: Greater than 4 Fingerbreadths Thyromental Distance: greater than 6 cm Plan Anesthesia Type: General Consent for Procedure(s) Verified and Reviewed: Yes Code Status: Attempt Resuscitation ASA classification: 2-Mild systemic disease Is this case an emergency?: No
[2023-12-09] MEDS ORDERED: LIDOCAINE-MPF 1% 30 ML VIAL ONE (11:53)
[2023-12-09] MEDS ORDERED: ePHEDrine 50 MG/ML VIAL IVP ONE (12:27)
[2023-12-09] MEDS ORDERED: HYDROcod/ACETAM 5/325 MG TABLET PO PRN (12:47)
--- NOTE | 2023-12-09 12:49 | Discharge Plan ---
Discharge Plan Problem Reviewed?: Yes Disposition: Home, Self Care Condition: Good Diet: Regular Activity Restrictions: Additional Comments (as instructed) Shower Restrictions: No Driving Restrictions: No Instruction Topics: Biopsy Ultrasound Transrectal Additional Instructions or Follow Up instructions: You have a follow-up appointment with Dr. Benítez December 18 at 3:30 PM. Please arrive 15 minutes early No Smoking: If you smoke, Please STOP! Call for help.
--- NOTE | 2023-12-09 12:52 | OPERATIVE REPORT ---
Operative Report - General Procedure Date: 12/09/23 Planned Procedure: Transrectal ultrasound-guided prostate biopsy Pre-Op Diagnosis: Elevated PSA Procedure Performed: Transrectal ultrasound-guided prostate biopsy Post Op Diagnosis: Elevated PSA - Procedure Note Primary Surgeon: Jeyson Anesthesia Provider: SEKOU Mcmahon Anesthesia Technique: Moderate sedation Pathology: prostate biopsy samples Estimated Blood Loss (mL): 0 Indications: PIRADS 4 lesion to left mid gland peripheral zone Findings: 158.6cc prostate Complications: none - Other Other Information/Narrative: After informed consent was obtained the patient was brought to the OR and laid in the supine position. The patient was then anesthetized per anesthesia protocols and placed in the left lower cubitus position with left side down. A timeout was performed reconfirming the patient, procedure and laterality. A transrectal ultrasound-guided probe was placed per rectum and his prostate was visualized. 5 cc 1% lidocaine was placed at the lateral aspect of the prostate bilaterally. The prostate volume was measured at 158.6cc Using 18-gauge biopsy needle we obtained samples of the prostate from the right and left side, the lateral and medial aspects of the base, mid and apex. Two extra samples were taken from the left mid gland corresponding to the PIRADS 4 lesion, for a total of 14 samples. The probe was slowly removed and no bleeding was identified. The patient tolerated procedure well and was brought to the PACU without further incident. He will follow-up in a few weeks time for pathology discussion
[2023-12-09 13:00] VITALS: BP 113/60; O2SAT 97
--- NOTE | 2023-12-09 14:27 | ANESTHESIA POST OP EVALUATION ---
Anesthesia Post Eval - Post Anesthesia Eval Vitals: Last Vital Signs Temp 36.2 C L 12/09/23 12:35 Pulse 82 12/09/23 12:58 Resp 18 12/09/23 12:58 BP 113/60 12/09/23 12:58 Pulse Ox 97 12/09/23 12:58 O2 Flow Rate CV Function Including HR & BP: Stable Pain Control: Satisfactory Nausea & Vomiting: Negative Mental Status: Baseline Respiratory Status: Airway Patent Hydration Status: Satisfactory Anesthesia Complications: None
== END 2023-12-09 11:08 | disposition home or self-care (01) ==
LOC: SDS 11:07
PROVIDERS: ATTEND Urology
PROC: 0VB07ZX Excision of Prostate, Via Natural or Artificial Opening, Diagnostic (ICD-10-PCS; principal; 2023-12-09 12:45)
DX: R97.20 Elevated prostate specific antigen [PSA] (principal); N42.9 Disorder of prostate, unspecified
CPT/HCPCS: 55700; J7120

== ENCOUNTER 2024-02-03 08:57 | Outpatient (CLI) | payer MEDICARE ==
[2024-02-03 12:36] LABS: BASOPHILS % (AUTO) 0.6 %; EOSINOPHILS # (AUTO) 0.1 10^3/uL (0.0-0.7); HCT - HEMATOCRIT 45.8 % (42.0-52.0); HGB - HEMOGLOBIN 14.7 g/dL (14.0-18.0); LYMPHOCYTES # (AUTO) 1.5 10^3/uL (1.5-3.5); LYMPHOCYTES % (AUTO) 29.5 %; MEAN CORPUSCULAR HEMOGLOBIN 30.6 pg (27.0-31.0); MEAN CORPUSCULAR HGB CONC 32.1 g/dL (32.0-36.0); MEAN CORPUSCULAR VOLUME 95.4 fL (80.0-94.0); MEAN PLATELET VOLUME 11.9 fL (7.4-11.4); MONOCYTES # (AUTO) 0.5 10^3/uL (0.0-1.0); MONOCYTES % (AUTO) 9.1 %; NEUTROPHILS # (AUTO) 2.9 10^3/uL (1.5-6.6); NEUTROPHILS % (AUTO) 58.6 %; PLT - PLATELET COUNT 190 10^3/uL (130-450); RED CELL DISTRIBUTION WIDTH 12.9 % (12.0-15.0); WHITE BLOOD COUNT 4.9 x10^3/uL (4.8-10.8)
[2024-02-03 12:46] LABS: ALBUMIN 4.3 g/dL (3.2-5.5); ALKALINE PHOSPHATASE 61 IU/L (42-121); ALT ALANINE AMINOTRANSFERASE 15 IU/L (10-60); AST ASPARTATE AMINOTRANSFERASE 15 IU/L (10-42); BILIRUBIN,TOTAL 0.6 mg/dL (0.2-1.0); BUN - BLOOD UREA NITROGEN 16 mg/dL (6-20); CALCIUM 9.1 mg/dL (8.5-10.3); CARBON DIOXIDE - CO2 33 mmol/L (21-32); CHLORIDE 104 mmol/L (101-111); CHOL/HDL RATIO 3.7 (<5.0); CHOLESTEROL 187 mg/dL; CREATININE 0.8 mg/dL (0.6-1.3); GFR - MDRD 94 (>89); GLUCOSE 110 mg/dL (74-104); HDL CHOLESTEROL 50 mg/dL; LDL CHOLESTEROL,CALCULATED 121 mg/dL; LDL/HDL RATIO 2.4 (<3.6); POTASSIUM 4.6 mmol/L (3.5-4.5); SODIUM 140 mmol/L (135-145); TOTAL PROTEIN 6.5 g/dL (6.4-8.9); TRIGLYCERIDES 79 mg/dL; VLDL CHOLESTEROL 16 mg/dL
[2024-02-03 12:54] LABS: THYROID STIMULATING HORMONE 1.72 uIU/mL (0.34-5.60)
== END 2024-02-03 08:58 | disposition home or self-care (01) ==
LOC: LAB.N 08:57
PROVIDERS: ATTEND Family Medicine
DX: G12.20 Motor neuron disease, unspecified (principal); R97.20 Elevated prostate specific antigen [PSA]; Z12.5 Encounter for screening for malignant neoplasm of prostate
CPT/HCPCS: 36415; 80053; 80061; 84443; 85025; G0103; 83721; 84153